=== PATIENT | male | born 2000 | race Caucasian/White ===

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

== ENCOUNTER 2021-11-17 15:46 | Emergency (ER) | payer BC, SELFPAY ==
--- NOTE | ~2021-11-17 | US_ITS ---
EXAMINATION: US scrotum doppler DATE: 11/17/2021 16:59 INDICATION: Right testicular pain. TECHNIQUE: Grayscale and Doppler ultrasound images of the testes were obtained. COMPARISON: None. FINDINGS: The right testis measures 4.6 x 2.9 x 2.6 cm. The left testis measures 4.2 x 2.9 x 2.8 cm. There is normal vascular flow to both testes. The right epididymis is normal with normal vascular antoni w. The left epididymis demonstrates a 3 mm cyst. There is no varicocele or hydrocele. IMPRESSION: 1. No etiology for the patient's symptoms. Reviewed, dictated and finalized at location A.
--- NOTE | ~2021-11-17 | CT_ITS ---
EXAMINATION: CT abdomen pelvis wo con DATE: 11/17/2021 17:45 INDICATION: Pelvic and testicular pain for one week TECHNIQUE: Computed tomography (CT) of the abdomen and pelvis was performed without intravenous contr ast. Automated exposure control and iterative reconstruction technique were employed. Exam dose: 403 .82 mGy-cm total exam DLP. COMPARISON: None. FINDINGS: The lung bases are clear of infiltrate or consolidation. Normal heart size. No pericardial or pleural effusion. The liver, gallbladder, bile ducts, spleen, pancreas, pancreatic duct, and adrenal glands and kidneys are unremarkable on this limited noncontrast examination. No urinary tract calculus or hydroureteron ephrosis. The urinary bladder and prostate gland are unremarkable. Normal appendix. There is a prominent amount of fecal material in the colon but no bowel obstruction, bowel wall thickening, pneumatosis or intraperitoneal free air is detected. Normal caliber of the abdominal aorta. No intraperitoneal or retroperitoneal or pelvic mass lesion or adenopathy or ascites. Included skeletal structures are unremarkable. IMPRESSION: No significant abnormality Reviewed, dictated and finalized at Location A. Reviewed, dictated and finalized at location A. IMPRESSION: No significant abnormality
[2021-11-17 15:56] VITALS: BP 137/99; PULSE 79; RESP 17; TEMP 36.6; O2SAT 100
[2021-11-17] MEDS: HYDROcodone/acetaminophen (*CRX) 5-325 MG TABLET 1 TAB PO (17:06)
[2021-11-17 17:22] LABS: Add Urine Microscopic? YES; Appearance Urine Clear (Clear); Bilirubin Urine Negative (Negative); Blood Urine Negative (Negative); Color Urine Yellow (Yellow); Glucose Urine UA Negative (Negative); Ketones Urine Negative (Negative); Leukocyte Esterase Ur Trace LEU/UL (Negative); Mucus Urine Rare /lpf; Nitrate Urine Negative (Negative); Protein Urine Negative (Negative); Specific Grav Ur 1.018 (1.001-1.035); Urobilinogen Urine Negative mg/dL (<2.0)
--- NOTE | 2021-11-17 19:05 | ED.GENADULT ---
HPI - General Adult General Chief complaint: Abdominal Pain Stated complaint: abdominal pain Time Seen by Provider: 11/17/21 16:14 History of Present Illness HPI narrative: Patient is a 21-year-old male who presents ER with right testicular pain. Progressively worsening over the last 2 weeks. Worse with standing and moving. Has pain of the actual testicle with palpation especially over the back. He believes there is some swelling. No urethral discharge or dysuria. Was sexually active with protection 1 week prior to onset of symptoms. Only sleeps with one individual. Pain radiates into his right lower abdomen. No blood in urine. Related Data Allergies Allergy/AdvReac Type Severity Reaction Status Date / Time No Known Allergies Allergy Verified 10/02/20 13:44 Review of Systems Review of Systems: All systems reviewed & are unremarkable except as noted in HPI and below Constitutional: Constitutional: Denies chills, Denies fever(s) and Denies weakness ENT: Denies nasal congestion and Denies sore throat Gastrointestinal: Gastrointestinal: Reports abdominal pain, Denies nausea and Denies vomiting Genitourinary: Genitourinary: Denies genital lesions, Denies dysuria, Denies penile discharge, Reports testicular pain and Denies urinary frequency PMFSH Past Medical History Medical History (Updated 11/17/21 @ 19:06 by Orlando Bloom MD) Asthma Surgical History Surgical History (Updated 11/17/21 @ 19:12 by Orlando Bloom MD) No pertinent past surgical history Social History Social History (Updated 10/02/20 @ 13:47 by Macy So MD) Smoking status: Never smoker Substance use type: marijuana Exam Narrative: GENERAL: Well-appearing, well-nourished, and in no acute distress. HEAD: Normocephalic, atraumatic. ABDOMEN: Soft, nontender, nondistended. : Normal-appearing external genitalia, tender globally over the right testicle but especially over the epididymis. No left testicular tenderness. No palpable hernia. No urethral discharge. No penile lesions. No palpable lymphadenopathy in the inguinal region. EXTREMITIES: Normal range of motion. No edema. SKIN: Warm, dry, no rash. NEURO: Alert and oriented x3. PSYCH: Normal mood and affect. Course Course Emergency Course: Informed of results. Will treat presumptively as possible STI. Patient given ceftriaxone IM here. Discussed that his serology for GC/chlamydia will return days. Vital Signs Vital signs: Vital Signs Temperature 97.9 F 11/17/21 15:56 Pulse Rate 79 11/17/21 15:56 Respiratory Rate 17 11/17/21 15:56 Blood Pressure 137/99 H 11/17/21 15:56 Pulse Oximetry 100 11/17/21 15:56 Temperature 97.9 F 11/17/21 15:56 Pulse Rate 79 11/17/21 15:56 Respiratory Rate 17 11/17/21 15:56 Blood Pressure 137/99 H 11/17/21 15:56 Pulse Oximetry 100 11/17/21 15:56 Medical Decision Making Vital Signs Vital Signs: Vital Signs Temperature 97.9 F 11/17/21 15:56 Pulse Rate 79 11/17/21 15:56 Respiratory Rate 17 11/17/21 15:56 Blood Pressure 137/99 H 11/17/21 15:56 Pulse Oximetry 100 11/17/21 15:56 Temperature 97.9 F 11/17/21 15:56 Pulse Rate 79 11/17/21 15:56 Respiratory Rate 17 11/17/21 15:56 Blood Pressure 137/99 H 11/17/21 15:56 Pulse Oximetry 100 11/17/21 15:56 Lab Data Labs: Lab Results 11/17/21 11/17/21 Range/Units 17:06 17:06 Urine Color Yellow (Yellow) Urine Appearance Clear (Clear) Urine pH 8.0 (5.0-9.0) Ur Specific [place] 1.018 (1.001-1.035) Urine Protein Negative (Negative) mg/dL Urine Glucose (UA) Negative (Negative) mg/dL Urine Ketones Negative (Negative) mg/dL Ur Blood (Man) Negative (Negative) Urine Nitrate Negative (Negative) Urine Bilirubin Negative (Negative) Urine Urobilinogen Negative (<2.0) mg/dL Leukocyte Esterase Rfl Trace H (Negative) KRISTY/UL Urine RBC 3-5 H (0-2) /hpf Urine WBC 1
[2021-11-17] MEDS: cefTRIAXone 1 GM VIAL 0.5 GM IM (19:24)
== END 2021-11-17 19:36 | disposition home or self-care (01) ==
PROVIDERS: Emergency Provider Emergency Medicine
DX: N50.811 Right testicular pain (principal); J45.909 Unspecified asthma, uncomplicated
CPT/HCPCS: 74176; 76870; 81001; 87086; 87491; 87591; 93976; 96372; 99284; A9270; J0696

== ENCOUNTER 2021-11-21 10:46 | Emergency (ER) | payer BC, SELFPAY ==
[2021-11-21 11:06] VITALS: BP 120/75; PULSE 72; PULSE 74; RESP 14; RESP 18; TEMP 36.6; TEMP 36.7; O2SAT 100
--- NOTE | 2021-11-21 11:57 | ED.MALEGU ---
HPI - Male Genitourinary General Chief complaint: Urogenital-Male Stated complaint: testicular pain Time Seen by Provider: 11/21/21 11:37 Source: patient History of Present Illness HPI Narrative: Patient presents with testicular pain and questions regarding his test results. Patient was recently seen in the ER for testicular pain treated for STIs he is continue of some pain when he reviewed his results he was unsure if he tested positive for chlamydia so he came to the ER for clarity. He reports his symptoms are manageable and really just wants to know what his test results show. Related Data Allergies Allergy/AdvReac Type Severity Reaction Status Date / Time No Known Allergies Allergy Verified 10/02/20 13:44 Review of Systems Review of Systems: CONSTITUTIONAL: Denies fever, chills, or sweats. EYES: Denies visual changes, redness, or discharge. ENT: Denies rhinorrhea, congestion, sore throat, or otalgia. CARDIOVASCULAR: Denies chest pain, palpitations, or edema. RESPIRATORY: Denies cough or dyspnea. GASTROINTESTINAL: Denies abdominal pain, nausea, vomiting, or diarrhea. GENITOURINARY: Denies dysuria or hematuria. SKIN: Denies rash or itching. MUSCULOSKELETAL: Denies back pain, joint pain, or myalgia. NEUROLOGIC: Denies headache, numbness, dizziness, or weakness. PSYCHIATRIC: Denies anxiety or depression. All systems reviewed & are unremarkable except as noted in HPI and below PMFSH Past Medical History Medical History Asthma Surgical History Surgical History No pertinent past surgical history Social History Social History Smoking status: Never smoker Substance use type: marijuana Exam Narrative: GENERAL: Well-appearing, well-nourished, and in no acute distress. HEAD: Normocephalic, atraumatic. EYES: PERRLA and EOMI. ENT: Nares clear, no rhinorrhea or epistaxis. Mucous membranes moist. NECK: Supple. No masses. No JVD EXTREMITIES: Normal range of motion. No edema. SKIN: Warm, dry, no rash. NEURO: No focal deficits. Alert and oriented x3. PSYCH: Normal mood and affect. Course Vital Signs Vital signs: Vital Signs Temperature 36.6 C 11/21/21 11:06 Pulse Rate 72 11/21/21 11:06 Respiratory Rate 18 11/21/21 11:06 Blood Pressure 120/75 11/21/21 11:06 Pulse Oximetry 100 11/21/21 11:06 Temperature 36.7 C 11/21/21 11:06 Pulse Rate 74 11/21/21 11:06 Respiratory Rate 14 11/21/21 11:06 Blood Pressure 120/75 11/21/21 11:06 Pulse Oximetry 100 11/21/21 11:06 MDM - Male Genitourinary MDM Narrative Medical decision making narrative: H&P as above, vss, pt looks clinically well, exam reassuring, prior labs and imaging reviewed, additional labs/img considered. symptomatic relief available as needed, patient prior test did reveal he tested positive for chlamydia this was reviewed with the patient patient is comfortable continuing his antibiotics and follow-up with his primary care doctor for test of cure. plan to tx/monitor as op w/ pcm f/u findings/plan discussed with pt, pt agree/comfortable with plan, return precautions given Lab Data Labs: Lab Results 11/21/21 Range/Units 11:39 Urine Color Yellow (Yellow) Urine Appearance Clear (Clear) Urine pH 6.0 (5.0-9.0) Ur Specific [place] 1.019 (1.001-1.035) Urine Protein Negative (Negative) mg/dL Urine Glucose (UA) Negative (Negative) mg/dL Urine Ketones Negative (Negative) mg/dL Ur Blood (Man) Negative (Negative) Urine Nitrate Negative (Negative) Urine Bilirubin Negative (Negative) Urine Urobilinogen Negative (<2.0) mg/dL Leukocyte Esterase Rfl Negative (Negative) KRISTY/UL Discharge Plan Discharge Clinical Impression: Chlamydia Patient Disposition: Home, Self-Care Condition: Improved Instructions: Antibioti
[2021-11-21 12:01] LABS: Add Urine Microscopic? NO; Appearance Urine Clear (Clear); Bilirubin Urine Negative (Negative); Blood Urine Negative (Negative); Color Urine Yellow (Yellow); Glucose Urine UA Negative (Negative); Ketones Urine Negative (Negative); Leukocyte Esterase Ur Negative LEU/UL (Negative); Nitrate Urine Negative (Negative); Protein Urine Negative (Negative); Specific Grav Ur 1.019 (1.001-1.035); Urobilinogen Urine Negative mg/dL (<2.0)
== END 2021-11-21 12:30 | disposition home or self-care (01) ==
PROVIDERS: Emergency Provider Emergency Medicine
DX: J45.909 Unspecified asthma, uncomplicated (principal); A56.2 Chlamydial infection of genitourinary tract, unspecified
CPT/HCPCS: 81003; 99283

== ENCOUNTER 2022-01-31 17:26 | Outpatient (CLI) | payer BC, SELFPAY ==
--- NOTE | ~2022-01-31 | XR_ITS ---
EXAMINATION: XR chest 2V DATE: 01/31/2022 17:47 INDICATION: Asthma, shortness of breath TECHNIQUE: PA and lateral views of the chest are obtained. COMPARISON: 10/02/2020 FINDINGS: The lungs are free of acute opacities. There is no pleural effusion or pneumothorax. The ca rdiomediastinal silhouette is normal. The visualized bones and soft tissues are unremarkable. IMPRESSION: 1. No acute cardiopulmonary abnormality. Reviewed, dictated and finalized at location F.
== END 2022-01-31 17:27 | disposition home or self-care (01) ==
PROVIDERS: Visit Provider Nurse Practitioner
DX: J45.41 Moderate persistent asthma with (acute) exacerbation (principal)
CPT/HCPCS: 71046

== ENCOUNTER 2022-09-26 08:27 | Emergency (ER) | payer OTHER, BC, SELFPAY ==
--- NOTE | 2022-09-26 08:30 | ED.URI ---
HPI - URI/Sore Throat General Chief Complaint: Upper Respiratory Infection Stated Complaint: Sore Throat/Fever Time Seen by Provider: 09/26/22 08:31 Source: patient and RN notes reviewed History of Present Illness HPI Narrative: Patient is a 22-year-old male who presents to urgent care with complaints of a sore throat and fever. 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 Denies any nausea, vomiting or headache. Denies any ill exposures. No other acute complaints. No acute distress noted. Patient aware of the plan of care. Some parts of this dictation were generated by voice recognition software and may contain typographical and/or grammatical inaccuracies. Related Data Allergies Allergy/AdvReac Type Severity Reaction Status Date / Time No Known Allergies Allergy Verified 10/02/20 13:44 Review of Systems Review of Systems: CONSTITUTIONAL: reports a fever EYES: Denies visual changes, redness, or discharge. ENT: Denies rhinorrhea, congestion, otalgia. Reports a sore throat CARDIOVASCULAR: Denies chest pain, palpitations, or edema. RESPIRATORY: Denies cough or dyspnea. GASTROINTESTINAL: Denies abdominal pain, nausea, vomiting, or diarrhea. GENITOURINARY: Denies dysuria or hematuria. SKIN: Denies rash or itching. MUSCULOSKELETAL: Denies back pain, joint pain, or myalgia. NEUROLOGIC: Denies headache, numbness, or weakness. All other systems reviewed are negative, except as documented in HPI. PMFSH Past Medical History Medical History Asthma Surgical History Surgical History No pertinent past surgical history Social History Social History Smoking status: Never smoker Substance use type: marijuana Comments At the time of my signature, I reviewed and agree with the nursing past medical, surgical, social, and family history. There is no relevant family history pertinent to the patient complaint. Exam Narrative: GENERAL: This is a well-nourished, well-developed patient, in no apparent distress. HEAD: normocephalic, atraumatic. EYES: PERRL. Sclera clear/white. Vision is grossly intact. EARS: External ears normal, auditory canals clear and without drainage, TMs normal without perforation. Hearing grossly intact. NOSE: External nose normal with no obvious nasal discharge, nares without redness, no rhinorrhea. THROAT: Mucous membranes moist, moderate erythema posterior bilateral tonsillar edema/erythema/exudate. Moderate post Nasal drainage NECK: Neck supple, non-tender without lymphadenopathy CARDIOVASCULAR: Regular rate RESPIRATORY: Clear to auscultation. Breath sounds equal bilaterally. No wheezes, rales, or rhonchi. SKIN: warm, intact with no suspicious lesions or rash, good texture and turgor. NEURO: awake, alert, and oriented to person, place and time. There were no obvious focal neurologic abnormalities. EXTREMITIES: No clubbing, cyanosis, or edema. Course Course Level of Care: Express Care Visit Vital Signs Vital signs: Vital Signs Temperature 99.9 F H 09/26/22 08:38 Pulse Rate 85 09/26/22 08:38 Respiratory Rate 16 09/26/22 08:38 Blood Pressure 128/80 09/26/22 08:38 Pulse Oximetry 98 09/26/22 08:38 Oxygen Delivery Room Air 09/26/22 08:38 Temperature 99.9 F H 09/26/22 08:38 Pulse Rate 85 09/26/22 08:38 Respiratory Rate 16 09/26/22 08:38 Blood Pressure 128/80 09/26/22 08:38 Pulse Oximetry 98 09/26/22 08:38 Oxygen Delivery Room Air 09/26/22 08:38 Reviewed MDM - URI/Sore Throat MDM Narrative Medical decision making narrative: Reviewed lab results with the patient. He is aware that his strep swab was positive. Advised patient to complete the oral antibiotic regimen as prescribed. Be sure to eat and drink wit
[2022-09-26 08:38] VITALS: BP 128/80; PULSE 85; RESP 16; TEMP 37.7; O2SAT 98
== END 2022-09-26 09:23 | disposition home or self-care (01) ==
PROVIDERS: Emergency Provider Nurse Practitioner Family
DX: J02.0 Streptococcal pharyngitis (principal); J45.909 Unspecified asthma, uncomplicated
CPT/HCPCS: 87880; 99213; G0463

== ENCOUNTER 2023-03-27 11:17 | Emergency (ER) | payer OTHER, SELFPAY ==
--- NOTE | 2023-03-27 11:22 | ED.URI ---
HPI - URI/Sore Throat General Chief Complaint: Upper Respiratory Infection Stated Complaint: Asthma Flair Source: patient and RN notes reviewed History of Present Illness HPI Narrative: 22 yo M presents to urgent care with complaints of worsening cough and SOB. Pt states he has asthma and his seasonal allergies were bad last week and he thinks thats what triggered this. Pt denies any fevers, chills, chest pain, abdominal pain, vomiting, sore throat, or ear pain. Pt has been taking his albuterol inhaler every 4 hours approximately. Related Data Home Medications Medication Instructions Recorded Confirmed albuterol sulfate 90 mcg/actuation 2 puff inhalation Q4H PRN 03/27/23 03/27/23 aerosol inhaler (ProAir HFA) shortness of breath or wheezing Allergies Allergy/AdvReac Type Severity Reaction Status Date / Time No Known Allergies Allergy Verified 03/27/23 11:38 Review of Systems Review of Systems: Pertinent positives and pertinent negatives per HPI. PMFSH Past Medical History Medical History Asthma Surgical History Surgical History No pertinent past surgical history Social History Social History Smoking status: Never smoker Substance use type: marijuana Comments At the time of my signature, I reviewed and agree with the nursing past medical, surgical, social, and family history. There is no relevant family history pertinent to the patient complaint. Exam Narrative: GENERAL: This is a well-nourished, well-developed patient, in no apparent distress. HEAD: normocephalic, atraumatic. EYES: Sclera clear/white. Vision is grossly intact. EARS: External ears normal, auditory canals clear and without drainage, TMs normal without perforation. Hearing grossly intact. NOSE: External nose normal with no obvious nasal discharge, nares without redness, no rhinorrhea. THROAT: Mucous membranes moist, posterior pharynx clear. NECK: Neck supple, non-tender without lymphadenopathy, masses or thyromegaly. CARDIOVASCULAR: Regular rate and rhythm without murmurs, gallops, or rubs. RESPIRATORY: wheezing noted to left lower lobes GASTROINTESTINAL: Abdomen soft, non-tender, nondistended. Bowel sounds are active. No hepato-splenomegaly, or palpable masses. No guarding. SKIN: warm, intact with no suspicious lesions or rash, good texture and turgor. NEURO: awake, alert, and oriented to person, place and time. There were no obvious focal neurologic abnormalities. Course Course Level of Care: Express Care Visit Vital Signs Vital signs: Vital Signs Temperature 97 F L 03/27/23 11:25 Pulse Rate 69 03/27/23 11:25 Respiratory Rate 18 03/27/23 11:25 Blood Pressure 121/67 03/27/23 11:25 Pulse Oximetry 98 03/27/23 11:25 Oxygen Delivery Room Air 03/27/23 11:25 Temperature 97 F L 03/27/23 11:25 Pulse Rate 69 03/27/23 11:25 Respiratory Rate 18 03/27/23 11:25 Blood Pressure 121/67 03/27/23 11:25 Pulse Oximetry 98 03/27/23 11:25 Oxygen Delivery Room Air 03/27/23 11:25 Reviewed MDM - URI/Sore Throat MDM Narrative Medical decision making narrative: Take the steroids as directed. Use your albuterol inhaler as directed; 2 puffs every 4-6 hours as needed. Go to the ER with any new or worsening symptoms. Follow up with music promoter. Differential Diagnosis Differential diagnosis: Likely upper respiratory infection, viral infection and pharyngitis Critical Care Time Critical Care Time Critical Care Time: No Discharge Plan Discharge Clinical Impression: Asthma exacerbation Qualifiers: Asthma severity: unspecified severity Asthma persistence: unspecified Qualified Code(s): J45.901 - Unspecified asthma with (acute) exacerbation Patient Disposition: Home, Self-Care Condition: Stable Instructions: Asthma (DC)
[2023-03-27 11:25] VITALS: BP 121/67; PULSE 69; RESP 18; TEMP 36.1; O2SAT 98
[2023-03-27] MEDS: predniSONE 20 MG TABLET 60 MG PO (11:47)
== END 2023-03-27 11:57 | disposition home or self-care (01) ==
PROVIDERS: Emergency Provider Nurse Practitioner Family
DX: J45.909 Unspecified asthma, uncomplicated (principal)
CPT/HCPCS: 99213; G0463; J7512

== ENCOUNTER 2023-04-06 12:13 | Emergency (ER) | payer OTHER, SELFPAY ==
--- NOTE | 2023-04-06 12:35 | PC.NURSE ---
Addendum entered by Marichuy Zacarias RN 04/06/23 13:15: prior to leaving, pt reports has scheduled doctor appointment on saturday and would request HIV test, or would obtain testing at STD clinic, or would do otc HIV test. Original Note: 1220 Following registration, prior to triage, informs staff he is here for an asymptomatic HIV test . Informed he will be seen here by a provider, and orders for std testing could include chlamydia/gonorrhoea/trich/herpes, does not include HIV. States he does not want additional testing, only testing for HIV. Left at this time, no apparent distress.
== END 2023-04-06 12:20 | disposition left against medical advice (07) ==
LOC: EXPBETH 12:17
PROVIDERS: Emergency Provider Nurse Practitioner Family
DX: Z53.21 Procedure and treatment not carried out due to patient leaving prior to being seen by health care provider (principal)
CPT/HCPCS: 99199

== ENCOUNTER 2023-04-09 12:26 | Outpatient (CLI) | payer OTHER, SELFPAY ==
--- NOTE | ~2023-04-09 | XR_ITS ---
Clinical Indication: Asthma PA and lateral views of the chest: Comparison: 01/31/2022 Findings: The lungs are clear, without evidence of focal consolidation or pleural effusion. Cardiome diastinal silhouette is within normal limits. Bones and soft tissues are unremarkable. Impression: Normal chest. Reviewed, dictated and finalized at location . Impression: Normal chest.
== END 2023-04-09 12:27 | disposition home or self-care (01) ==
PROVIDERS: PCP Nurse Practitioner Adult Health; Visit Provider Nurse Practitioner Adult Health
DX: J45.901 Unspecified asthma with (acute) exacerbation (principal)
CPT/HCPCS: 71046

== ENCOUNTER 2023-04-12 07:55 | Outpatient (CLI) | payer OTHER, SELFPAY ==
--- NOTE | ~2023-04-12 | US_ITS ---
Testicular ultrasound with doppler. Indication: Testicular pain. Technique: Real-time sonography the scrotum was performed. Color flow Doppler and Doppler spectral an alysis were performed. Findings: The testes are homogeneous in echotexture bilaterally. There is no evidence of an intrates ticular mass. The right testis measures 4.2 x 2.5 x 4.5 cm and the left 4.8 x 2.6 x 3.1 cm. There is color-flow seen to both testes. Arterial and venous spectral waveforms are seen in both testes. There is no sonographic evidence of torsion. The head of the epididymis is visualized bilaterally and is within normal limits. Impression: Unremarkable exam. No evidence of torsion. Reviewed, dictated and finalized at location . Impression: Unremarkable exam. No evidence of torsion.
== END 2023-04-12 07:56 ==
LOC: GOSHIMG 07:58
PROVIDERS: PCP Nurse Practitioner Adult Health; Visit Provider Nurse Practitioner Adult Health
DX: N50.819 Testicular pain, unspecified (principal)
CPT/HCPCS: 76870; 93976

== ENCOUNTER 2023-04-23 11:55 | Outpatient (CLI) | payer OTHER, SELFPAY ==
[2023-04-23 19:09] LABS: Appearance Urine Clear (Clear); Bilirubin Urine Negative (Negative); Blood Urine Negative (Negative); Color Urine Yellow (Yellow); Glucose Urine UA Negative (Negative); Ketones Urine Negative (Negative); Leukocyte Esterase Ur Negative LEU/UL (NEGATIVE); Nitrate Urine Negative (Negative); Protein Urine Negative (Negative); Specific Grav Ur 1.025 (1.001-1.035); Urobilinogen Urine 0.2 mg/dL (<2.0)
[2023-04-23 19:14] LABS: Add Urine Microscopic? NO
[2023-04-23 20:17] LABS: HIV 1/2 Ab P24 Ag Result Negative (Negative)
[2023-04-24 14:43] LABS: Rapid Plasma Reagin Non-Reactive (NonReactive)
== END 2023-04-23 11:56 | disposition home or self-care (01) ==
PROVIDERS: PCP Nurse Practitioner Adult Health; Visit Provider Nurse Practitioner Adult Health
DX: R39.9 Unspecified symptoms and signs involving the genitourinary system (principal); Z72.51 High risk heterosexual behavior; N50.82 Scrotal pain
CPT/HCPCS: 36415; 81003; 86592; 86695; 86696; 86703; 87491; 87591; G0432

== ENCOUNTER 2024-07-04 08:02 | Emergency (ER) | payer SELFPAY ==
[2024-07-04 08:14] VITALS: BP 99/66; PULSE 109; RESP 16; TEMP 36.9; O2SAT 99
--- NOTE | 2024-07-04 08:20 | ED_ITS ---
HPI - Asthma General Chief Complaint: Asthma Stated Complaint: ASthma flare History of Present Illness HPI Narrative: Patient presents with a asthma flare. Patient states he got a cold with the weather change which triggered his asthma to causing problems. Patient states he uses his steroid inhaler as ordered daily and has a home nebulizer which she uses as instructed. Patient denies any fever or body aches. Patient denies any shortness of breath or chest pain. Related Data Home Medications Medication Instructions Recorded Confirmed albuterol sulfate 90 mcg/actuation 2 puff inhalation Q4H PRN 03/27/23 04/23/23 aerosol inhaler (ProAir HFA) shortness of breath or wheezing Allergies Allergy/AdvReac Type Severity Reaction Status Date / Time No Known Allergies Allergy Verified 04/23/23 11:36 Review of Systems Review of Systems: CONSTITUTIONAL: Denies fever, chills, or sweats. EYES: Denies visual changes, redness, or discharge. ENT: Denies rhinorrhea, congestion, sore throat, or otalgia. CARDIOVASCULAR: Denies chest pain, palpitations, or edema. RESPIRATORY: Denies cough or dyspnea. GASTROINTESTINAL: Denies abdominal pain, nausea, vomiting, or diarrhea. GENITOURINARY: Denies dysuria or hematuria. SKIN: Denies rash or itching. MUSCULOSKELETAL: Denies back pain, joint pain, or myalgia. NEUROLOGIC: Denies headache, numbness, or weakness. PSYCHIATRIC: Denies anxiety or depression. [facility] Past Medical History Medical History (Updated 07/04/24 @ 08:27 by FILOMENA Fonseca) Allergies Asthma Surgical History Surgical History No pertinent past surgical history Family History Family History (Updated 04/09/23 @ 11:32 by Jayne Martell MA) Father Depression Hypertension Heart disease Mother Diabetes mellitus Hypertension Depression Social History Social History (Updated 04/09/23 @ 11:36 by Jayne Martell MA) Smoking status: Never smoker Alcohol intake: current Alcohol use details: Beer /Liquor Lack of Transportation: No Lack of Food: Never True Current Housing: I Have Housing Concerned About Future Housing: No Difficulty Paying Gas/Electric Bills: No Difficulty Paying for Meds: YES Currently Unemployed: No Education: High School Diploma/GED Difficulty w/ Childcare or Family Care: No Living arrangements: with roommate(s) Gender identity (if verbalized by the patient): Male Agree to blood products: Yes Comments At time of signature, agree with nursing past medical, surgical, social and family history. There is no relevant family history pertinent to the presenting complaint Exam Narrative: The patient is a well-developed, well-nourished in no acute distress. SKIN: Skin is warm and dry without erythema, swelling or exudate. There is good turgor. No tenting. HEAD: Atraumatic. Normocephalic. No temporal or scalp tenderness. EYES: Moist and bright. Sclera and conjunctivae normal. No discharge. PERRLA. Extraocular motions intact. Gross visual acuity intact. EARS: Pinna is normal shape and contour. Clear external auditory canals. TM pearly obrien with good cone of light, no erythema or suppuration. Bilateral cerumen noted no gross hearing deficit. NOSE: pink, moist mucosa with good air movement. Clear rhinorrhea without nasal flaring. Septum midline. Mouth: moist mucous membranes. THROAT; mild erythema noted to posterior oropharynx with moderate postnasal drainage. Without exudate or ulceration.. Uvula midline. Normal movement of soft palate. NECK: Supple and nontender with full range of motion without discomfort. No meningeal signs. LUNGS: Equal and bilateral breath sounds with expiratory wheezes, few scattered rhonchi in right lower base no respiratory distress CHEST: The chest wall is without retractions or use of accessory muscles. HEART: Has a regular rate and rhythm without murmur, gallops, click or rub. ABDOMEN: Soft, nontender with positive active bowel sounds. No rebound tenderness. EXTREMITIES: Without cyanosis, clubbing or edema. Equal 2+ distal pulses and 2 second capillary refill noted. NEUROLOGIC: alert, active, . The patient moves all extremities with normal muscle strength. Normal muscle tone is noted. Normal coordination is noted. NO focal neurological findings noted. Course Course Level of Care: Express Care Visit Vital Signs Vital signs: Vital Signs Temperature 36.9 C 07/04/24 08:14 Pulse Rate 109 H 07/04/24 08:14 Respiratory Rate 16 07/04/24 08:14 Blood Pressure 99/66 L 07/04/24 08:14 Pulse Oximetry 99 07/04/24 08:14 Oxygen Delivery Room Air 07/04/24 08:14 Temperature 36.9 C 07/04/24 08:14 Pulse Rate 109 H 07/04/24 08:14 Respiratory Rate 16 07/04/24 08:14 Blood Pressure 99/66 L 07/04/24 08:14 Pulse Oximetry 99 07/04/24 08:14 Oxygen Delivery Room Air 07/04/24 08:14 Re-examined after neb treatment respirations even and nonlabored lungs much improved, patient states he feels much better. Discussed need to follow-up with PCP and establish a primary care provider discussed red flags and when to go to ER. Discharge Plan Discharge Clinical Impression: Asthma, Asthma with acute exacerbation Patient Disposition: Home, Self-Care Condition: Stable Instructions: Antibiotic Form, Asthma (DC) Additional Instructions: Continue to use steroid inhaler daily as prescribed During asthma flares use home nebulizer 3 times a day Take antibiotic as prescribed until gone Start prednisone in the morning take every morning with food until gone If no improvement in 24 hours or any worsening in 24 hours go to the emergency room immediately for further evaluation treatment. Follow-up with primary care provider in 2-3 days for re-evaluation Prescriptions: New azithromycin [Zithromax Z-Wade] 250 mg tablet See Rx Instructions .ROUTE .COMPLEX Qty: 6 0RF Rx Instructions: take 500 mg today (day 1), then 250 mg for 4 days (days 2-5) prednisone 20 mg tablet 40 mg PO DAILY 5 Days Qty: 10 0RF fluticasone propion-salmeterol [Advair Diskus] 500-50 mcg/dose blister with device 1 inh inhalation Q12H Qty: 60 0RF Zyrtec 10 mg capsule 10 mg PO DAILY 14 Days Qty: 30 0RF No Action albuterol sulfate [ProAir HFA] 90 mcg/actuation HFA aerosol inhaler 2 puff inhalation Q4H PRN (Reason: shortness of breath or wheezing) Follow-up/Referrals: PHYSICIAN,CERTIFIED NOVELL ENGINEER [Primary Care Provider] - Ranjan Mane MD [Physician] - Stand Alone Forms: Work/School Release IP
[2024-07-04] MEDS: methylPREDNISolone SOD SUCC 125 MG VIAL IM (08:28)
[2024-07-04] MEDS: ALBUTEROL SULFATE NEB 2.5 MG/3 ML INH INHALATION (08:28)
[2024-07-04] MEDS: IPRATROPIUM BR 0.02% INH SOLN 0.5 MG/2.5 ML VIAL INHALATION (08:29)
[2024-07-04 09:04] VITALS: PULSE 97; RESP 20; O2SAT 98
== END 2024-07-04 08:58 | disposition home or self-care (01) ==
PROVIDERS: Emergency Provider Nurse Practitioner Family
DX: J45.901 Unspecified asthma with (acute) exacerbation (principal)
CPT/HCPCS: 94640; 96372; 99213; G0463; J2919

== ENCOUNTER 2024-10-18 08:07 | Emergency (ER) | payer BC, SELFPAY ==
[2024-10-18 08:16] VITALS: BP 144/75; PULSE 104; RESP 16; TEMP 37.1; O2SAT 99
[2024-10-18] MEDS: methylPREDNISolone SOD SUCC 125 MG VIAL IM (09:10)
--- NOTE | 2024-10-18 09:25 | ED.GENADULT ---
HPI - General Adult General Chief complaint: Upper Respiratory Infection Stated complaint: Asthma/Shortness of Breath/Cough Source: patient Mode of arrival: ambulatory Limitations: no limitations History of Present Illness HPI narrative: Patient presents for evaluation of sick symptoms for last week. Symptoms include hot flashes, chills, cough, shortness of breath, wheezing and sore throat which he attributes to albuterol use. He has an underlying history of asthma. He has been administering nebulizer treatments at home. His roommate has been sick as of late. Denies any nausea, vomiting or diarrhea. Related Data Home Medications ?Medication ?Instructions ?Recorded ?Confirmed ?Last Taken ?Type albuterol sulfate 90 mcg/actuation 2 puff inhalation Q4H PRN 03/27/23 04/23/23 Unknown History aerosol inhaler (ProAir HFA) shortness of breath or wheezing albuterol sulfate 2.5 mg/3 mL 2.5 mg inhalation Q4H PRN 10/18/24 10/18/24 Unknown History (0.083 %) solution for nebulization shortness of breath or wheezing Allergies Allergy/AdvReac Type Severity Reaction Status Date / Time No Known Allergies Allergy Verified 10/18/24 08:43 Review of Systems Review of Systems: CONSTITUTIONAL: Reports hot flashes and chills EYES: Denies visual changes, redness, or discharge. ENT: Reports sore throat from albuterol use. Denies rhinorrhea, congestion, or otalgia. CARDIOVASCULAR: Denies chest pain, palpitations, or edema. RESPIRATORY: Reports cough, SOB and wheezing GASTROINTESTINAL: Denies abdominal pain, nausea, vomiting, or diarrhea. GENITOURINARY: Denies dysuria or hematuria. SKIN: Denies rash or itching. MUSCULOSKELETAL: Denies back pain, joint pain, or myalgia. NEUROLOGIC: Denies headache, numbness, dizziness, or weakness. PSYCHIATRIC: Denies anxiety or depression. [facility] Past Medical History Medical History Allergies Asthma Surgical History Surgical History No pertinent past surgical history Family History Family History Father Depression Hypertension Heart disease Mother Diabetes mellitus Hypertension Depression Social History Social History Smoking status: Never smoker Alcohol intake: current Alcohol use details: Beer /Liquor Lack of Transportation: No Lack of Food: Never True Current Housing: I Have Housing Concerned About Future Housing: No Difficulty Paying Gas/Electric Bills: No Difficulty Paying for Meds: YES Currently Unemployed: No Education: High School Diploma/GED Difficulty w/ Childcare or Family Care: No Living arrangements: with roommate(s) Gender identity (if verbalized by the patient): Male Agree to blood products: Yes Exam Narrative: GENERAL: Well-appearing, well-nourished, and in no acute distress. HEAD: Normocephalic, atraumatic. EYES: PERRLA and EOMI. ENT: Nares clear, no rhinorrhea or epistaxis. Mucous membranes moist. Oropharynx without tonsillar hypertrophy exudate or other lesions. Bilateral TMs pearly candelario nonbulging NECK: Supple. No adenopathy or masses. No carotid bruits or JVD CHEST: Wheezing noted in bilateral lung taylor. No respiratory distress. No rales or rhonchi HEART: Regular rate and rhythm. No murmur heard. Normal peripheral pulses. ABDOMEN: Soft, nontender, nondistended, normal active bowel sounds. EXTREMITIES: Normal range of motion. No edema. SKIN: Warm, dry, no rash. NEURO: No focal deficits. Alert and oriented x3. PSYCH: Normal mood and affect. Course Course Emergency Course: This is a 24-year-old male who presented for evaluation of sick symptoms. COVID negative. Influenza B negative. Influenza A positive. Will treat with Tamiflu and prednisone. He also requested a refill on his inhaler. Follow-up with primary provider. Go to the ER for worsening symptoms. Patient in agreement with plan of care. Level of Care: Express Care Visit Vital Signs Vital signs: Vital Signs Temperature 37.1 C 10/18/24 08:16 Pulse Rate 104 H 10/18/24 08:16 Respiratory Rate 16 10/18/24 08:16 Blood Pressure 144/75 H 10/18/24 08:16 Pulse Oximetry 99 10/18/24 08:16 Oxygen Delivery Room Air 10/18/24 08:16 Temperature 37.1 C 10/18/24 08:16 Pulse Rate 104 H 10/18/24 08:16 Respiratory Rate 16 10/18/24 08:16 Blood Pressure 144/75 H 10/18/24 08:16 Pulse Oximetry 99 10/18/24 08:16 Oxygen Delivery Room Air 10/18/24 08:16 Medical Decision Making Vital Signs Vital Signs: Vital Signs Temperature 37.1 C 10/18/24 08:16 Pulse Rate 104 H 10/18/24 08:16 Respiratory Rate 16 10/18/24 08:16 Blood Pressure 144/75 H 10/18/24 08:16 Pulse Oximetry 99 10/18/24 08:16 Oxygen Delivery Room Air 10/18/24 08:16 Temperature 37.1 C 10/18/24 08:16 Pulse Rate 104 H 10/18/24 08:16 Respiratory Rate 16 10/18/24 08:16 Blood Pressure 144/75 H 10/18/24 08:16 Pulse Oximetry 99 10/18/24 08:16 Oxygen Delivery Room Air 10/18/24 08:16 Discharge Plan Discharge Clinical Impression: Asthma, Influenza Patient Disposition: Home, Self-Care Condition: Stable Instructions: Antibiotic Form, Asthma (DC), Influenza (DC) Patient Language: Tuvaluan Prescriptions: New prednisone 50 mg tablet 50 mg PO DAILY Qty: 5 0RF oseltamivir [Tamiflu] 75 mg capsule 75 mg PO Q12H 5 Days Qty: 10 0RF fluticasone propion-salmeterol 500-50 mcg/dose blister with device 1 inh inhalation Q12H Qty: 60 0RF No Action albuterol sulfate [ProAir HFA] 90 mcg/actuation HFA aerosol inhaler 2 puff inhalation Q4H PRN (Reason: shortness of breath or wheezing) albuterol sulfate 2.5 mg /3 mL (0.083 %) solution for nebulization 2.5 mg inhalation Q4H PRN (Reason: shortness of breath or wheezing) Follow-up/Referrals: Ranjan Mane MD [Primary Care Provider] - Stand Alone Forms: Work/School Release IP Time of Disposition: :
[2024-10-18 09:34] LABS: EDCOVIDSCREEN Negative (Negative); EDINFLUASCREEN Positive (Negative); EDINFLUBSCREEN Negative (Negative)
== END 2024-10-18 09:25 | disposition home or self-care (01) ==
PROVIDERS: Emergency Provider Nurse Practitioner; PCP Emergency Medicine
DX: J45.909 Unspecified asthma, uncomplicated (principal); J10.1 Influenza due to other identified influenza virus with other respiratory manifestations; Z20.822 Contact with and (suspected) exposure to COVID-19
CPT/HCPCS: 87426; 87804; 96372; 99213; G0463; J2919